=== PATIENT | female | born 1985 | race Caucasian/White ===

== ENCOUNTER 2020-12-03 11:53 | Emergency (ER) | payer OTHER, SELFPAY ==
--- NOTE | ~2020-12-03 | CT_ITS ---
EXAMINATION: CT ABDOMEN AND PELVIS WITH CONTRAST CLINICAL INFORMATION: Abdominal pain. COMPARISON: None. TECHNIQUE: Contiguous axial thin section helical images of the abdomen and pelvis were performed following the administration of 85 mL of intravenous Omnipaque 350. The data set was reformatted in the coronal and sagittal planes and reviewed on an independent workstation. DLP: 1282 mGy-cm. FINDINGS: The visualized lung bases are clear. The visualized portions of the heart are unremarkable. The liver is of normal size and attenuation without focal lesions nor intrahepatic biliary ductal dilation. A normal gallbladder is identified. There is no wall thickening or discernible pericholecystic fluid. The spleen, pancreas, adrenal glands are unremarkable. Both kidneys are of normal size and attenuation without hydronephrosis or nephrolithiasis. Following the administration of IV contrast, prompt symmetric nephrograms are displayed. There is no abdominal free fluid. There is neither mesenteric nor retroperitoneal lymphadenopathy. Normal unopacified loops of small and large bowel are identified. There is no pelvic free fluid. There is an 18 mm right ovarian cyst. The urinary bladder is unremarkable. There is neither pelvic nor inguinal lymphadenopathy. Bone windows: Neither sclerotic nor lytic bone lesions are identified. CT/CT abdomen pelvis w con IMPRESSION: No evidence for acute abdominal or pelvic inflammatory or infectious processes. 18 mm right ovarian cyst. Automated exposure control (Care Dose) Adjustment of the mA and/or kv according to patient size (this includes techniques or standardized protocols for targeted exams where dose is matched to indication / reason for exam; i.e. extremities or head).
--- NOTE | ~2020-12-03 | US_ITS ---
EXAMINATION: ABDOMINAL ULTRASOUND LIMITED CLINICAL INFORMATION: Right upper quadrant pain. COMPARISON: 12/03/2020 TECHNIQUE: Real-time imaging of the right upper quadrant abdominal viscera. FINDINGS: PANCREAS: The visualized pancreatic head and body are normal in appearance. The remainder of the pancreas is obscured from visualization by the overlying bowel gas. LIVER: The liver is of normal size and echogenicity without intrahepatic biliary ductal dilation. There is an approximately 24 mm focus of nonshadowing increased echogenicity within the right lobe of the liver. GALLBLADDER: Normal. The gallbladder is physiologically distended without evidence of stones, sludge, polyps, wall thickening or pericholecystic fluid. COMMON BILE DUCT: Normal in caliber measuring 0.4 cm in diameter. RIGHT KIDNEY: Normal. No hydronephrosis. No renal calculi or focal parenchymal lesions. The kidney measures 11.0 cm in maximum dimension. FREE FLUID: None. US/US abdomen limited IMPRESSION: Normal gallbladder. 24 mm focus of increased echogenicity within the right lobe of liver. This is nonspecific, though may correspond to an hemangioma. Consider correlation with abdominal MRI for further tissue characterization.
--- NOTE | 2020-12-03 13:54 | ED_ITS ---
HPI - Abdominal Pain General Chief Complaint: Abdominal Pain Stated Complaint: abd pain Time Seen by Provider: 12/03/20 13:53 Related Data Allergies Allergy/AdvReac Type Severity Reaction Status Date / Time mirtazapine [MIRTAZAPINE] Allergy Severe THROAT Verified 12/03/20 13:54 CLOSES cinnamon [CINNAMON] Allergy Intermediate ITCHING Verified 12/03/20 13:54 tomato [TOMATO] Allergy Intermediate HIVES Verified 12/03/20 13:54 butalbital [From FIORICET] Allergy Unknown ANGIOEDEMA Verified 12/03/20 13:54 clarithromycin [From BIAXIN] Allergy Unknown UNKNOWN Verified 12/03/20 13:54 doxycycline [DOXYCYCLINE] Allergy Unknown ANGIOEDEMA Verified 12/03/20 13:54 lettuce [LETTUCE] Allergy Unknown ANAPHYLAXIS, Verified 12/03/20 13:54 THROAT SWELLS phenobarbital [From ] Allergy Unknown ANGIOEDEMA Verified 12/03/20 13:54 risperidone [From RISPERDAL] Allergy Unknown UNKNOWN Verified 12/03/20 13:54 From SEROQUEL Allergy Severe ANGIOEDEMA, Uncoded 07/12/20 17:17 ANAPHYLAXIS From BENTYL Allergy Unknown UNKNOWN Uncoded 07/12/20 17:17 From DHE Allergy Unknown UNKNOWN Uncoded 07/12/20 17:17 From Allergy Unknown ANGIOEDEMA Uncoded 07/12/20 17:17 From PROZAC Allergy Unknown UNKNOWN Uncoded 07/12/20 17:17 From REGLAN Allergy Unknown ANGIOEDEMA Uncoded 07/12/20 17:17 Course Course Course Narrative: RME done at this time 1:55pm - 35yoF presenting to the ED c c/o periumbilical abd pain radiating to LUQ now RUQ. Seen by Jesica yesterday 12/02/[address] scan of abd/pelvis without IV contrast which revelaed constipation placed on Lactulose reports she had a bowel movement and no symptomatic relief so PCP advised her to not go back to [facility] to Come to [place] from futher evaluation and tx. = On exam pt is anxious and in pain otherwise no other acute distress. Vitals are stable. Pt c moderate TTP diffusely worse in upper abd. - Labs, UA, UHCG ordered at this time PMFSH Past Medical History Medical History (Updated 12/03/20 @ 13:58 by Alison Inman) Depression Endometriosis Gastroparesis GERD (gastroesophageal reflux disease) IBS (irritable bowel syndrome) Ovarian cyst
[2020-12-03 13:55] VITALS: BP 143/80; PULSE 130; RESP 18; TEMP 36.7; O2SAT 99; BMI 36.8
[2020-12-03 14:53] LABS: Glucose Urine UA NEG (NEG); Leukocyte Esterase Urine 1+ (NEG); Nitrite Urine NEG (NEG); UACC Culture Trigger YES; Urine Blood TRACE (NEG); Urine Ketones 5 MG/DL (NEG); Urine Protein NEG (NEG-TRACE)
[2020-12-03 15:06] LABS: Appearance Urine CLEAR; Color Urine YELLOW
[2020-12-03 15:07] LABS: UPreg QC Valid YES; Urine Pregnancy NEGATIVE (NEGATIVE)
[2020-12-03 15:15] LABS: Bacteria Urine 2+ /LPF; Renal Epithelial Cells Urine TRACE /LPF; Squamous Epithelial Cell Urine 3+ /LPF
[2020-12-03 15:21] LABS: Amphetamine Screen Urine Not Detected (Not Detect); Barbiturates, Urine Not Detected (Not Detect); Benzodiazepines Screen Urine Not Detected (Not Detect); Cannabinoid Screen Urine Not Detected (Not Detect); Cocaine Screen Urine Not Detected (Not Detect); Opiate Screen Urine POSITIVE (Not Detect); Phencyclidine Screen Urine Not Detected (Not Detect)
[2020-12-03 18:06] LABS: MANUAL DIFF FLAG NO
[2020-12-03 18:17] LABS: Basophils Absolute Auto 0.1 X10*3/uL (0.0-0.2); Basophils Percent Auto 0.9 % (0-2); Eosinophils Absolute Auto 0.1 X10*3/uL (0.0-0.4); Eosinophils Percent Auto 1.7 % (0-4); Hematocrit 41.9 % (37-47); Hemoglobin 14.5 g/dl (12.0-16.0); Imm Gran Abs Auto 0.01 X10*3/uL (0.00-0.03); Imm Gran Pct Auto 0.1 % (0.0-0.4); Lymphocytes Absolute Auto 3.5 X10*3/uL (1.2-4.9); Lymphocytes Percent Auto 49.9 % (20-40); Mean Corpuscular HGB Conc 34.6 g/dl (31.0-35.0); Mean Corpuscular Hemoglobin 31.7 pg (27.0-33.0); Mean Corpuscular Volume 91.7 fL (80-98); Monocytes Absolute Auto 0.5 X10*3/uL (0.1-1.2); Monocytes Percent Auto 7.5 % (2-11); Neutrophils Absolute Auto 2.8 X10*3/uL (2.0-8.3); Neutrophils Percent Auto 39.9 % (45-73); Platelet Count 321 X10*3/uL (160-400); Red Blood Count 4.57 X10*6/uL (4.20-5.50); Red Cell Distribution Width 13.9 % (11.0-16.0)
[2020-12-03 18:31] LABS: Ethanol < 10 mg/dL
[2020-12-03 18:36] LABS: Alanine Aminotransferase 43 U/L (0-31); Alkaline Phosphatase 84 U/L (39-117); Anion Gap 12 (12-20); Aspartate Amino Transferase 29 U/L (5-31); Bilirubin Direct 0.2 mg/dL (0.0-0.5); Bilirubin Total 0.4 mg/dL (0.0-1.0); Blood Urea Nitrogen 8 mg/dL (9-16); Calcium 8.6 mg/dL (8.4-10.2); Carbon Dioxide 23 mmol/L (22-29); Chloride 108 mmol/L (96-108); Creatinine Clr Calc Pharmacy 100.4; Estimated Glomerular Filt Rate > 60; Glucose Random 73 mg/dL (60-115); Lipase 40 U/L (8-78); Magnesium 1.9 mg/dL (1.6-2.6); Sodium 139 mmol/L (135-145); Total Protein 6.9 g/dL (6.5-8.0)
[2020-12-03] MEDS: diphenhydrAMINE HCL 50 MG/ML VIAL IVPUSH (21:40)
[2020-12-03] MEDS: methylPREDNISolone Sod Succ/PF 125 MG/2 ML VIAL IVPUSH (21:40)
--- NOTE | 2020-12-03 21:40 | ED_ITS ---
HPI - Abdominal Pain General Chief Complaint: Abdominal Pain Stated Complaint: abd pain Time Seen by Provider: 12/03/20 13:53 Source: patient Mode of arrival: wheelchair Limitations: no limitations History of Present Illness HPI narrative: Patient comes emergency room complaining of abdominal pain. Patient states it started approximately 1 week ago in the left lower quadrant. Patient states she went to [facility], she had a CT scan done with no contrast due to history allergic reaction (localized rash in arm), she was told that she had moderate constipation and was given a laxative and sent home. Patient states that she has history of IBS, she has history of constipation but she has actually been moving her bowels. Patient had 1 episode of vomiting this morning, feeling nauseous afterwards. No diarrhea. Also, patient states that in 2014 she had a HIDA scan done, she was told that she may need an elective cholecystectomy. Patient went to see her primary care physician today, her PCP this physical exam, was not convinced with the diagnosis of constipation, and asked the patient to return to the emergency room. Patient states that since this morning, the pain has been radiating from the left lower quadrant towards the right upper quadrant. MD elicited complaint: abdominal pain Related Data Allergies Allergy/AdvReac Type Severity Reaction Status Date / Time mirtazapine [MIRTAZAPINE] Allergy Severe THROAT Verified 12/03/20 13:54 CLOSES cinnamon [CINNAMON] Allergy Intermediate ITCHING Verified 12/03/20 13:54 tomato [TOMATO] Allergy Intermediate HIVES Verified 12/03/20 13:54 butalbital [From FIORICET] Allergy Unknown ANGIOEDEMA Verified 12/03/20 13:54 clarithromycin [From BIAXIN] Allergy Unknown UNKNOWN Verified 12/03/20 13:54 doxycycline [DOXYCYCLINE] Allergy Unknown ANGIOEDEMA Verified 12/03/20 13:54 lettuce [LETTUCE] Allergy Unknown ANAPHYLAXIS, Verified 12/03/20 13:54 THROAT SWELLS phenobarbital [From ] Allergy Unknown ANGIOEDEMA Verified 12/03/20 13:54 risperidone [From RISPERDAL] Allergy Unknown UNKNOWN Verified 12/03/20 13:54 From SEROQUEL Allergy Severe ANGIOEDEMA, Uncoded 07/12/20 17:17 ANAPHYLAXIS From BENTYL Allergy Unknown UNKNOWN Uncoded 07/12/20 17:17 From DHE Allergy Unknown UNKNOWN Uncoded 09/17/20 17:17 From Allergy Unknown ANGIOEDEMA Uncoded 07/12/20 17:17 From PROZAC Allergy Unknown UNKNOWN Uncoded 07/12/20 17:17 From REGLAN Allergy Unknown ANGIOEDEMA Uncoded 07/12/20 17:17 Review of Systems Review of Systems Constitutional : No Weight loss, No Fever, No Chills, No Night Sweats, No Fatigue, No Malaise ENT/Mouth : No Hearing loss, No Ear Pain, No Nasal Congestion, No Sinus Pain, No Hoarseness, No sore throat, No Rhinorrhea, No Swallowing Difficulty Eyes: No Eye Pain, No Swelling, No Redness, No Foreign Body, No Discharge, No Vision Changes Cardiovascular : No Chest Pain, No SOB, No Dyspnea on Exertion, No Orthopnea, No Edema, No Palpitations Respiratory : No Cough, No Sputum, No Wheezing, No Smoke Exposure, No Dyspnea Gastrointestinal : Complaining of nausea, 1 episode of vomiting this morning, No Diarrhea, chronic constipation but having small bowel movements, left lower quadrant pain and right upper quadrant pain, No Hematochezia, No Melena Genitourinary : no irregular bleeding, No Dysuria, No Urinary Frequency, No Hematuria, No Urinary Incontinence, No Urgency, No Flank Pain, No Urinary Flow Changes, No Hesitancy Musculoskeletal : No joint pain, No Myalgias, No Joint Swelling Skin : No Skin Lesions, No rash Neuro : No Weakness, No Numbness, No Paresthesias, No Loss of Consciousness, No Dizziness, No Headache Psych : No Anxiety/Panic, No Depression, No SI/HI/AH/VH, No Social Issues, Heme/Lymph: No Bruising, No Bleeding,No Lymphadenopathy Endocrine : No Polyuria, No Polydipsia, No Temperature Intolerance Physical Exam Vital Signs: Vital Signs: Last Vital Signs Temp 98.6 F 12/03/20 21:56 Pulse 106 H 12/03/20 21:56 Resp 16 12/03/20 21:59 BP 142/84 H 12/03/20 21:56 Pulse Ox 100 12/03/20 21:56 Body Mass Index 36.8 Appearance: Alert. Oriented X3. No acute distress. Anxious Eyes: Pupils equal, round and reactive to light. ENT: Pharynx normal. Neck: Normal inspection. Neck supple. No lymph nodes noted. No crepitus CVS: Normal heart rate and rhythm. Pulses normal. Normal S1 and S2 Respiratory: No respiratory distress. Breath sounds normal. No Wheezing. No rales Abdomen: Soft, left lower quadrant tenderness, right upper quadrant tenderness, No rigidity. No distention. good BS x4 Skin: Skin warm and dry. Normal skin color. Normal skin turgor. Extremities: No lower extremity edema. No lower extremity edema. No Lacerations. No Rash Neuro: Oriented X 3. No motor deficit. No sensory deficit. Moving all e xtermities. No slurred speech. Course Course Course Narrative: I discussed with the patient her allergy to IV contrast. Patient states it is a localized reaction, hives the localized in the arm around the IV site, and sensation of urinating on herself . I discussed with the patient that we can premedicate her and we can use contrast for the CT scan. I discussed with the patient the risks and benefits, patient states that she is willing to try the premedication and the IV contrast. Patient aware that the risks include angioedema MDM - Abdominal Pain Lab Data Result diagrams: 12/03/20 17:57 12/03/20 17:57 Labs: Lab Results 12/03/20 12/03/20 12/03/20 Range/Units 14:20 14:40 17:57 WBC 7.0 (4.8-10.8) X10*3/uL RBC 4.57 (4.20-5.50) X10*6/uL Hgb 14.5 (12.0-16.0) g/dl Hct 41.9 (37-47) % MCV 91.7 (80-98) fL MCH 31.7 (27.0-33.0) pg MCHC 34.6 (31.0-35.0) g/dl RDW 13.9 (11.0-16.0) % Plt Count 321 (160-400) X10*3/uL MPV 10.0 (9.4-12.3) fL Immature Gran % (Auto) 0.1 (0.0-0.4) % Neut % (Auto) 39.9 L (45-73) % Lymph % (Auto) 49.9 H (20-40) % [place] % (Auto) 7.5 (2-11) % Eos % (Auto) 1.7 (0-4) % Baso % (Auto) 0.9 (0-2) % Lymph # (Auto) 3.5 (1.2-4.9) X10*3/uL [place] # (Auto) 0.5 (0.1-1.2) X10*3/uL Eos # (Auto) 0.1 (0.0-0.4) X10*3/uL Baso # (Auto) 0.1 (0.0-0.2) X10*3/uL Abs Immat Gran (auto) 0.01 (0.00-0.03) X10*3/uL Absolute Neuts (auto) 2.8 (2.0-8.3) X10*3/uL Absolute Nucleated RBC 0.000 (0.0-0.012) X10*3/uL Nucleated RBC % (auto) 0.0 (0.0-0.2) /100WBC Hold Blue Top Sodium (135-145) mmol/L Potassium (3.3-5.1) mmol/L Chloride (96-108) mmol/L Carbon Dioxide (22-29) mmol/L Anion Gap (12-20) BUN (9-16) mg/dL Creatinine (0.5-1.4) mg/dL Estim Creat Clear Calc Estimated GFR Random Glucose (60-115) mg/dL Calcium (8.4-10.2) mg/dL Magnesium (1.6-2.6) mg/dL Total Bilirubin (0.0-1.0) mg/dL Direct Bilirubin (0.0-0.5) mg/dL AST (5-31) U/L ALT (0-31) U/L Alkaline Phosphatase (39-117) U/L Total Protein (6.5-8.0) g/dL Albumin (3.5-5.0) g/dL Lipase (8-78) U/L Urine Color YELLOW Urine Appearance CLEAR Urine pH 6.0 (5.0-8.0) Ur Specific [place] 1.020 (1.005-1.025) Urine Protein NEG (NEG-TRACE) MG/DL Urine Glucose (UA) NEG (NEG) MG/DL Urine Ketones 5 (NEG) MG/DL Urine Blood TRACE (NEG) Urine Nitrite NEG (NEG) Ur Leukocyte Esterase 1+ H (NEG) Urine RBC 1-4 (0) /HPF Urine WBC 1-4 (0-4) /HPF Ur Squamous Epith Cells 3+ /LPF Ur Renal Epithelial Cell TRACE /LPF Urine Bacteria 2+ /LPF Urine Test NEGATIVE (NEGATIVE) Urine Opiates Screen POSITIVE H (Not Detect) Ur Barbiturates Screen Not Detected (Not Detect) Ur Phencyclidine Scrn Not Detected (Not Detect) Ur Amphetamines Screen Not Detected (Not Detect) U Benzodiazepines Scrn Not Detected (Not Detect) Urine Cocaine Screen Not Detected (Not Detect) U Marijuana (THC) Screen Not Detected (Not Detect) Ethyl Alcohol mg/dL 12/03/20 12/03/20 12/03/20 Range/Units 17:57 17:57 17:57 WBC (4.8-10.8) X10*3/uL RBC (4.20-5.50) X10*6/uL Hgb (12.0-16.0) g/dl Hct (37-47) % MCV (80-98) fL MCH (27.0-33.0) pg MCHC (31.0-35.0) g/dl RDW (11.0-16.0) % Plt Count (160-400) X10*3/uL MPV (9.4-12.3) fL Immature Gran % (Auto) (0.0-0.4) % Neut % (Auto) (45-73) % Lymph % (Auto) (20-40) % [place] % (Auto) (2-11) % Eos % (Auto) (0-4) % Baso % (Auto) (0-2) % Lymph # (Auto) (1.2-4.9) X10*3/uL [place] # (Auto) (0.1-1.2) X10*3/uL Eos # (Auto) (0.0-0.4) X10*3/uL Baso # (Auto) (0.0-0.2) X10*3/uL Abs Immat Gran (auto) (0.00-0.03) X10*3/uL Absolute Neuts (auto) (2.0-8.3) X10*3/uL Absolute Nucleated RBC (0.0-0.012) X10*3/uL Nucleated RBC % (auto) (0.0-0.2) /100WBC Hold Blue Top SEE NOTE Sodium 139 (135-145) mmol/L Potassium 4.0 (3.3-5.1) mmol/L Chloride 108 (96-108) mmol/L Carbon Dioxide 23 (22-29) mmol/L Anion Gap 12 (12-20) BUN 8 L (9-16) mg/dL Creatinine 0.87 (0.5-1.4) mg/dL Estim Creat Clear Calc 100.4 Estimated GFR > 60 Random Glucose 73 (60-115) mg/dL Calcium 8.6 (8.4-10.2) mg/dL Magnesium 1.9 (1.6-2.6) mg/dL Total Bilirubin 0.4 (0.0-1.0) mg/dL Direct Bilirubin 0.2 (0.0-0.5) mg/dL AST 29 (5-31) U/L ALT 43 H (0-31) U/L Alkaline Phosphatase 84 (39-117) U/L Total Protein 6.9 (6.5-8.0) g/dL Albumin 4.0 (3.5-5.0) g/dL Lipase 40 (8-78) U/L Urine Color Urine Appearance Urine pH (5.0-8.0) Ur Specific [place] (1.005-1.025) Urine Protein (NEG-TRACE) MG/DL Urine Glucose (UA) (NEG) MG/DL Urine Ketones (NEG) MG/DL Urine Blood (NEG) Urine Nitrite (NEG) Ur Leukocyte Esterase (NEG) Urine RBC (0) /HPF Urine WBC (0-4) /HPF Ur Squamous Epith Cells /LPF Ur Renal Epithelial Cell /LPF Urine Bacteria /LPF Urine Test (NEGATIVE) Urine Opiates Screen (Not Detect) Ur Barbiturates Screen (Not Detect) Ur Phencyclidine Scrn (Not Detect) Ur Amphetamines Screen (Not Detect) U Benzodiazepines Scrn (Not Detect) Urine Cocaine Screen (Not Detect) U Marijuana (THC) Screen (Not Detect) Ethyl Alcohol < 10 mg/dL [facility] Past Medical History Medical History Depression Endometriosis Gastroparesis GERD (gastroesophageal reflux disease) IBS (irritable bowel syndrome) Ovarian cyst Social History Social History Advance Directives: No Advance Directives Information Provided: No
[2020-12-03] MEDS: Famotidine/PF 20 MG/2 ML VIAL IVPUSH (21:41)
[2020-12-03] MEDS: 0.9 % Sodium Chloride 1,000 ML 999 ML IVCONT (21:45)
[2020-12-03 21:56] VITALS: BP 142/84; PULSE 106; RESP 14; TEMP 37; O2SAT 100
[2020-12-03] MEDS: ondansetron HCL 4 MG/2 ML VIAL IVPUSH (21:58)
[2020-12-03 21:59] VITALS: RESP 16
[2020-12-03] MEDS: Morphine Sulfate 2 MG/ML CARTRIDGE IVPUSH (21:59)
[2020-12-04] MEDS: iohexoL 350 MG/ML 100 ML INFUS..BTL 85 ML IV (00:02)
[2020-12-04] MEDS: Morphine Sulfate 4 MG/ML CARTRIDGE IVPUSH (01:00)
[2020-12-04] MEDS: Prochlorperazine Edisylate 10 MG/2 ML VIAL IVPUSH (01:00)
[2020-12-04 01:01] VITALS: BP 148/84; PULSE 110; RESP 18; O2SAT 100
[2020-12-04 03:06] VITALS: BP 132/65; PULSE 92; RESP 16; TEMP 36.6; O2SAT 94
== END 2020-12-04 03:11 | disposition home or self-care (01) ==
PROVIDERS: Physician Assistant Medical; Emergency Provider Emergency Medicine; PCP Internal Medicine
DX: R10.32 Left lower quadrant pain (principal); R10.11 Right upper quadrant pain; R11.10 Vomiting, unspecified; N83.201 Unspecified ovarian cyst, right side
CPT/HCPCS: 36415; 74177; 76705; 80048; 80076; 80307; 80320; 81001; 81003; 81025; 83690; 83735; 85025; 87086; 96361; 96374; 96375; 96376; 99284; J1200; J2270; J2405; J2930; Q9967